=== PATIENT | male | born 1995 ===

== ENCOUNTER 2019-03-05 10:00 | Emergency (ER) | payer MEDICAID ==
[~2019-03-05] VITALS: Ht 188 cm; Wt 145.4 kg
[2019-03-05 12:05] VITALS: BP 133/72
== END 2019-03-05 13:03 | disposition home or self-care (01) ==
LOC: EMS 10:03
DX: S80.02XA Contusion of left knee, initial encounter (principal); R03.0 Elevated blood-pressure reading, without diagnosis of hypertension; V43.52XA Car driver injured in collision with other type car in traffic accident, initial encounter; Y93.89 Activity, other specified; Y92.411 Interstate highway as the place of occurrence of the external cause; Y99.8 Other external cause status